=== PATIENT | female | born 1975 | race Caucasian/White ===

== ENCOUNTER 2019-10-23 16:30 | Emergency (ER) | payer BC, MEDICAID ==
[~2019-10-23] VITALS: Ht 175.3 cm; Wt 63.5 kg
[~2019-10-23 16:30] MED LIST: SPIR25TA
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
--- NOTE | 2019-10-23 16:50 | NUR ---
REFUSED IVP INSERTION, MADE MD AWARE. ONLY AGREED TO EKG AND LAB
[2019-10-23 16:57] LABS: BASOPHILS % (AUTO) 0.6 % (0.0-2.0); EOSINOPHILS % (AUTO) 0.5 % (0.0-6.0); HEMATOCRIT 42 % (33-45); HEMOGLOBIN 14.1 g/dL (11.5-14.8); LYMPHOCYTES # (AUTO) 2.7 /CMM (0.8-4.8); LYMPHOCYTES % (AUTO) 39.5 % (20.0-44.0); MEAN CORPUSCULAR HGB CONC 33 g/dl (31.0-36.0); MEAN CORPUSCULAR VOLUME 96 fL (82-100); MONOCYTES # (AUTO) 0.5 /CMM (0.1-1.30); MONOCYTES % (AUTO) 7.5 % (2.0-12.0); NEUTROPHILS # (AUTO) 3.6 /CMM (1.8-8.9); NEUTROPHILS % (AUTO) 51.9 % (43.0-81.0); PLATELET COUNT (AUTO) 186 /CMM (150-450); RED BLOOD CELL COUNT(AUTO) 4.41 MIL/uL (4.0-5.2)
--- NOTE | 2019-10-23 16:57 | NUR ---
REFUSED ALL MEDICATIONS, MADE AWARE
[2019-10-23] MEDS ORDERED: LIDOCAINE VISCOUS 2% UD 15 ML UDC MM ONE (17:00)
[2019-10-23] MEDS ORDERED: FAMOTIDINE/PF INJ 20 MG/2 ML VIAL IV ONE (17:00)
[2019-10-23] MEDS ORDERED: MAG HYDROX/AL HYDROX/SIMETH 30 ML UDC PO ONE (17:00)
--- NOTE | 2019-10-23 17:07 | NUR ---
AUTHORIZATION COORDINATOR AT BEDSIDE
[2019-10-23 17:09] LABS: CALCIUM, SERUM 9.3 mg/dL (8.5-10.1); CARBON DIOXIDE 32 mmol/L (21-32); CHLORIDE 103 mmol/L (98-107); CREATININE 0.8 mg/dL (0.6-1.3); GLUCOSE 88 mg/dL (74-106); POTASSIUM 3.7 mmol/L (3.5-5.1); SODIUM SERUM 142 mmol/L (136-145); UREA NITROGEN, BLOOD 18 mg/dL (7-18)
--- NOTE | 2019-10-23 17:54 | NUR ---
Patient discharged to home in stable condition. Written and verbal after care instructions given. Patient verbalizes understanding of instruction.
[2019-10-23 18:12] VITALS: BP 129/60
== END 2019-10-23 17:58 | disposition home or self-care (01) ==
LOC: ER 16:32
DX: R07.89 Other chest pain (principal); F17.200 Nicotine dependence, unspecified, uncomplicated; Z88.0 Allergy status to penicillin; Z98.890 Other specified postprocedural states
CPT/HCPCS: 36415; 71045-TC; 80048-TC; 84484-TC; 85025-TC

== ENCOUNTER 2020-01-07 10:08 | Emergency (ER) | payer MEDICAID ==
[~2020-01-07] VITALS: Ht 175.3 cm; Wt 64.4 kg
--- NOTE | 2020-01-07 10:12 | NUR ---
CAME IN FOR PRESSURE-LIKE CHEST PAIN AND DIZZINESS THAT STARTED THIS MORNING. TO ER BED 10, PATIENT APPEARS ANXIOUS. HOOKED TO MONITOR, CHANGED TO HOSP GOWN, WARM BLANKET PROVIDED. DAUGHTER AT BEDSIDE. AWAITING MD HAYNES.
--- NOTE | 2020-01-07 10:17 | NUR ---
PT SEEN AND EXAMINED BY .
--- NOTE | 2020-01-07 10:30 | NUR ---
IV LINE ESTABLISHED, BLOOD DRAWN AND SENT TO LAB.
--- NOTE | 2020-01-07 10:36 | NUR ---
RECEIVED VERBAL ORDER FROM DR IBARRA FOR ATIVAN 2MG IVP. CARRIED OUT.
[2020-01-07] MEDS ORDERED: LORAZEPAM INJ 2 MG/ML VIAL ONE (10:37)
[2020-01-07 10:53] LABS: BASOPHILS % (AUTO) 0.6 % (0.0-2.0); HEMATOCRIT 43 % (33-45); HEMOGLOBIN 14.4 g/dL (11.5-14.8); LYMPHOCYTES # (AUTO) 2.4 /CMM (0.8-4.8); LYMPHOCYTES % (AUTO) 34.5 % (20.0-44.0); MEAN CORPUSCULAR HGB CONC 34 g/dl (31.0-36.0); MEAN CORPUSCULAR VOLUME 94 fL (82-100); MONOCYTES # (AUTO) 0.6 /CMM (0.1-1.30); MONOCYTES % (AUTO) 8.6 % (2.0-12.0); NEUTROPHILS # (AUTO) 3.8 /CMM (1.8-8.9); NEUTROPHILS % (AUTO) 55.3 % (43.0-81.0); PLATELET COUNT (AUTO) 187 /CMM (150-450); RED BLOOD CELL COUNT(AUTO) 4.55 MIL/uL (4.0-5.2); WHITE BLOOD COUNT (AUTO) 6.9 K/uL (4.3-11.0)
[2020-01-07] MEDS ORDERED: LORAZEPAM INJ 2 MG/ML VIAL IV ONE (11:00)
--- NOTE | 2020-01-07 11:05 | NUR ---
FILLING STATION LABORER AT BEDSIDE
[2020-01-07 11:11] LABS: CALCIUM, SERUM 9.8 mg/dL (8.5-10.1); CARBON DIOXIDE 28 mmol/L (21-32); CHLORIDE 103 mmol/L (98-107); CREATININE 0.7 mg/dL (0.6-1.3); GLUCOSE 78 mg/dL (74-106); POTASSIUM 3.8 mmol/L (3.5-5.1); SODIUM SERUM 141 mmol/L (136-145); UREA NITROGEN, BLOOD 21 mg/dL (7-18)
--- NOTE | 2020-01-07 13:28 | NUR ---
IV removed. Catheter intact and site benign. Pressure and 4x4 applied to site. No bleeding noted. Patient discharged to home with 9 year old daughter in stable condition. Written and verbal after care instructions given. Patient verbalizes understanding of instruction. Instructed patient not to drive. Patient verbalized understanding. Stated that will use [facility] to go home. Assisted to waiting room.
[2020-01-07 13:31] VITALS: BP 92/61
== END 2020-01-07 13:31 | disposition home or self-care (01) ==
LOC: ER 10:12
DX: R07.89 Other chest pain (principal); R42 Dizziness and giddiness; F17.200 Nicotine dependence, unspecified, uncomplicated; Z79.899 Other long term (current) drug therapy; Z88.0 Allergy status to penicillin; Z98.82 Breast implant status
CPT/HCPCS: 36415; 71045; 80048; 84484; 85025; 93005 ×3; 96374; 99285; J2060

== ENCOUNTER 2022-05-20 12:10 | Emergency (ER) | payer BC, MEDICAID ==
[~2022-05-20] VITALS: Ht 175.3 cm; Wt 71.7 kg
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
--- NOTE | 2022-05-20 12:55 | NUR ---
taken for CT Scan
[2022-05-20] MEDS ORDERED: IBUP-1957 PO (13:51)
[2022-05-20] MEDS ORDERED: ONDA4TAB11 PO (13:51)
[2022-05-20] MEDS ORDERED: HYDR-4209 PO (13:51)
[2022-05-20] MEDS ORDERED: CYCL5TAB PO (13:51)
[2022-05-20 13:56] VITALS: BP 110/62
== END 2022-05-20 13:58 | disposition home or self-care (01) ==
LOC: ER 12:18
DX: S13.4XXA Sprain of ligaments of cervical spine, initial encounter (principal); F17.200 Nicotine dependence, unspecified, uncomplicated; Z88.0 Allergy status to penicillin; Z98.890 Other specified postprocedural states; Z79.899 Other long term (current) drug therapy; V49.49XA Driver injured in collision with other motor vehicles in traffic accident, initial encounter; Y93.89 Activity, other specified; Y92.413 State road as the place of occurrence of the external cause; Y99.8 Other external cause status
CPT/HCPCS: 70450-TC; 72125-TC